=== PATIENT | female | born 1980 | race Caucasian/White ===

== ENCOUNTER 2016-11-06 08:26 | Emergency (ER) | payer BC ==
[2016-11-06 08:40] VITALS: TEMP 97.4
--- NOTE | 2016-11-06 08:55 | ED.PDOC ---
History of Present Illness - General Chief Complaint: Problem Stated Complaint: right flank pain Time Seen by Provider: 11/06/16 08:49 Source: patient Exam Limitations: no limitations - History of Present Illness Initial Comments: Patient is a 36 yo F with CHF and HTN who presents with right flank pain for one day. Pain is sharp and constant. Non-radiating. No exacerbating nor alleviating factors. No previous episodes that have felt like this exactly but she did have a "kidney infection" once. No fever/hematuria/dysuria/frequency. No other complaints. Timing/Duration: 24 hours Severity: moderate Improving Factors: nothing Worsening Factors: nothing Associated Symptoms: denies symptoms Allergies/Adverse Reactions: Allergies NO KNOWN ALLERGY Allergy (Verified 05/05/16 21:33) Home Medications: Ambulatory Orders Albuterol Inhaler [Ventolin Hfa Inhaler] 1 inh INH Q4H PRN #0 inh 02/27/13 Albuterol Sulfate 0.083 % IN Q4H PRN 05/15/14 Carvedilol [Coreg] 6.25 mg PO BID 05/15/14 Clonidine HCl 0.1 mg PO PRN PRN 05/15/14 Lisinopril & Hydrochlorothiazi [Lisinopril/Hctz 20-12.5 mg] 1 tab PO DAILY 05/15 Montelukast Sodium 10 mg PO DAILY 05/15/14 Montelukast Sodium 10 mg PO DAILY #20 tab 05/06/16 amLODIPine BESYLATE [Norvasc] 5 mg PO DAILY #20 tab 05/06/16 Ketorolac Tromethamine [Toradol Tabs] 10 mg PO Q6HR #16 tab 11/06/16 Review of Systems - Review of Systems Constitutional: States: no symptoms reported EENTM: States: no symptoms reported Respiratory: States: no symptoms reported Cardiology: States: no symptoms reported Gastrointestinal/Abdominal: States: see HPI Genitourinary: States: see HPI Musculoskeletal: States: no symptoms reported Skin: States: no symptoms reported Neurological: States: no symptoms reported Endocrine: States: no symptoms reported Hematologic/Lymphatic: States: no symptoms reported Past Medical History (General) - Patient Medical History Hx Seizures: No Hx Stroke: No Hx Asthma: Yes Hx of COPD: No Hx Cardiac Disorders: No Hx Congestive Heart Failure: Yes Hx Pacemaker: No Hx Hypertension: Yes Hx Diabetes: No Hx Cancer: No Hx Hepatitis C: No Hx MRSA: No - Vaccination History Hx Tetanus, Diphtheria Vaccination: No Hx Influenza Vaccination: No Hx Pneumococcal Vaccination: No - Social History Hx Tobacco Use: Yes Hx Chewing Tobacco Use: No Hx Alcohol Use: No Hx Substance Use: No Hx Physical Abuse: No Hx Emotional Abuse: No Hx Suspected Abuse: No - Female History Patient is a Female of Child Bearing Age (10 -59 yrs old): Yes Patient : No Family Medical History - Family History Mother Living Status: Sister Living Status: Still Living Hx Family Stroke: Yes Physical Exam - Physical Exam Ears, Nose, Throat: normal ENT inspection Neck: non-tender, full range of motion, supple Respiratory: other - mild scattered wheezing Cardiovascular/Chest: regular rate, rhythm Gastrointestinal/Abdominal: normal bowel sounds, non tender, soft Back Exam: normal inspection, no CVA tenderness Extremity: normal inspection Skin Exam: normal color Lymphatic: no adenopathy Progress - Progress Progress: 11/06/16 10:19 Urinalysis showed large blood. Other labs wnl. CT ab/pelvis showed 1 mm left uretral stone. Patient received toradol 30 mg IM x one and RX for toradol at home. Laboratory Tests 11/06/16 11/06/16 11/06/16 08:45 09:00 09:00 WBC 8.8 RBC 4.58 Hgb 13.9 Hct 41.8 MCV 91.3 MCH 30.3 MCHC 33.2 RDW 14.9 H Plt Count 267 MPV 8.7 Absolute Neuts (auto) 5.90 Absolute Lymphs (auto) 2.10 Absolute Monos (auto) 0.50 Absolute Eos (auto) 0.30 Absolute Basos (auto) 0.10 Neutrophils % 66.6 Lymphocytes % 23.6 Monocytes % 5.3 Eosinophils % 3.4 Basophils % 1.1 Sodium 139 Potassium 3.8 Chloride 105 Carbon Dioxide 28 Anion Gap 9.8 L BUN 11 Creatinine 0.67 BUN/Creatinine Ratio 16.4 Random Glucose 165 H Serum Osmolality 280.6 Calcium 9.3 Total Bilirubin 0.7 AST 21 ALT 28 Alkaline Phosphatase 101 Serum Total Protein 7.5 Albumin 4.2 Globulin 3.3 Albumin/Globulin Ratio 1.3 Urine Color Yellow Urine Appearance Clear Urine pH 6.5 Ur Specific [place] 1.020 Urine Protein Negative Urine Glucose (UA) Negative Urine Ketones Negative Urine Blood Large H Urine Nitrite Negative Urine Bilirubin Negative Urine Urobilinogen 0.2 Ur Leukocyte Esterase Negative Urine RBC 1-3 Urine WBC 0 Ur Epithelial Cells 3-5 Urine Bacteria 0 Departure - Departure Clinical Impression: Ureteral stone Disposition: Discharge to Home or Self Care Condition: Good Departure Forms: ED Discharge - Pt. Copy, Patient Portal Self Enrollment Diet: resume usual diet, other - increase fluids Activity: increase activity as tolerated Referrals: Gabriele Whiteside MD [Primary Care Provider] - 1-2 Weeks Prescriptions: Ketorolac Tromethamine [Toradol Tabs] 10 mg PO Q6HR #16 tab Home Medications: Ambulatory Orders Albuterol Inhaler [Ventolin Hfa Inhaler] 1 inh INH Q4H PRN #0 inh 02/27/13 Albuterol Sulfate 0.083 % IN Q4H PRN 05/15/14 Carvedilol [Coreg] 6.25 mg PO BID 05/15/14 Clonidine HCl 0.1 mg PO PRN PRN 05/15/14 Lisinopril & Hydrochlorothiazi [Lisinopril/Hctz 20-12.5 mg] 1 tab PO DAILY 05/15 Montelukast Sodium 10 mg PO DAILY 05/15/14 Montelukast Sodium 10 mg PO DAILY #20 tab 05/06/16 amLODIPine BESYLATE [Norvasc] 5 mg PO DAILY #20 tab 05/06/16 Ketorolac Tromethamine [Toradol Tabs] 10 mg PO Q6HR #16 tab 11/06/16 Additional Instructions: Take medication as prescribed. Try to catch the stone with the strainer provided and bring it in a plastic bag to your doctor or to the lab here. Increase your oral fluids. Return to your primary care provider if pain continues for more than 4 days or for painful urination.
--- NOTE | 2016-11-06 10:08 | CT ---
EXAM DESCRIPTION: Abdoment/Pelvis w/o Contrast CLINICAL HISTORY: stone protocol COMPARISON: None. TECHNIQUE: CT of the abdomen and pelvis was performed . Multiple axial images and multiplanar reconstructions were generated. This exam was performed according to our department minimal dose optimization program which includes automated exposure control, adjustment of mA and/or kV according to patient size and/or use of iterative reconstructed techniques. FINDINGS: Lung bases are clear. There is extreme hepatomegaly as the liver measures 25 cm in diameter. The liver is also fatty. Splenomegaly noted. The spleen measures 14 cm in diameter. The gallbladder is present. The pancreas and bilateral adrenal glands are unremarkable. No evidence of renal obstruction. No definitive proximal or mid ureteral stone. There is a tiny 1 mm density noted within the region of the left distal ureter which could be compatible with a small ureteral stone. No definitive urinary bladder stone. Uterus is unremarkable. Right ovarian follicle noted measuring 2 cm in diameter. No lymphadenopathy. Small bowel and colon are grossly unremarkable. IMPRESSION: 1. Today's exam is limited due to quantum mottle. There is a 1 mm density noted within the region of the left distal ureter which could be a phlebolith or a left distal ureteral stone. If this is a ureteral stone is not resulting in any obstruction of the left ureter or kidney. 2. A very large liver is noted which measures 25 cm in diameter. The liver is also low in density compatible with fatty infiltration. There is also splenomegaly noted. Electronically signed by: Jese Suazo MD 11/06/2016 10:07 AM CDT
[2016-11-06] MEDS ORDERED: KETOROLAC TROMETHAMINE INJ 30 MG/ML VIAL IM ONE (10:19)
[2016-11-06 11:00] VITALS: BP 152/94; O2SAT 95
== END 2016-11-06 11:00 | disposition home or self-care (01) ==
LOC: ER 08:26
DX: N20.1 Calculus of ureter (principal); I11.0 Hypertensive heart disease with heart failure; I50.9 Heart failure, unspecified; J45.909 Unspecified asthma, uncomplicated; Z87.891 Personal history of nicotine dependence; Z79.899 Other long term (current) drug therapy

== ENCOUNTER 2020-02-12 09:28 | Emergency (ER) | payer SELFPAY ==
[2020-02-12 09:42] VITALS: TEMP 96.5
[2020-02-12] MEDS ORDERED: TAMSULOSIN 0.4 MG CAP PO ONE (09:50)
[2020-02-12] MEDS ORDERED: MORPHINE SULFATE INJ 10 MG/ML VIAL IV ONE (09:50)
[2020-02-12] MEDS ORDERED: cloNIDine HCL 0.1 MG TAB PO ONE (10:47)
[2020-02-12 11:07] VITALS: O2SAT 97
--- NOTE | 2020-02-12 11:17 | CT ---
Study: CT abdomen and pelvis. Indication: rt flank pain Technique: CT of the abdomen and pelvis obtained without intravenous contrast. This exam was performed according to our departmental dose-optimization program, which includes automated exposure control, adjustment of the mA and/or kV according to patient size and/or use of iterative reconstruction technique. Comparison: November 06, 2016. Findings: Patchy groundglass attenuation in the lingula. Mild cardiomegaly. Hepatomegaly and hepatic steatosis. Gallbladder, pancreas, spleen, adrenal glands, kidneys, bladder, uterus, bilateral adnexa demonstrate a normal unenhanced CT appearance. Abnormal multilobulated soft tissue density noted in the presacral space but difficult to evaluate due to body habitus. This may reflect vascularity but is indeterminate. Mild colonic diverticulosis. Appendix not visualized. No free fluid. No free air. No pathologically enlarged lymphadenopathy. Atherosclerosis aorta. Degenerative changes of the spine noted. Impression: Technically limited examination due to body habitus. Hazy groundglass partially visualized in the lingula. This could reflect atelectasis or pneumonia. COVID-19 could give this appearance. Hepatic steatosis and hepatomegaly. Indeterminate multilobulated soft tissue density focus in the presacral space, indeterminate. Further characterization with MRI female pelvis with and without IV contrast recommended. No hydronephrosis or nephrolithiasis. Additional findings as above. Electronically signed by: Dillan Harkins MD 02/12/2020 11:16 AM CDT
[2020-02-12 12:05] VITALS: BP 168/102
--- NOTE | 2020-02-12 12:17 | ED.PDOC ---
History of Present Illness - General Chief Complaint: Problem Stated Complaint: right flank pain, urinary urgency Time Seen by Provider: 02/12/20 09:33 Source: patient Exam Limitations: no limitations - History of Present Illness Initial Comments: The patient is a 39-year-old female presented emergency room secondary to right flank pain since yesterday. It has come along with the need to urinate more frequently though she has not been able to really urinate much. The patient is also had stomach upset for the last week since she started her metformin. She has had some intermittent diarrhea and increased reflux issues. No chest pain. She has had a little worsening of her asthma over the last week as well. No weight loss. No fever. No chest pain. No shortness of breath otherwise. Timing/Duration: unsure Severity: mild Improving Factors: nothing Worsening Factors: nothing Associated Symptoms: malaise, nausea/vomiting Allergies/Adverse Reactions: Allergies NO KNOWN ALLERGY Allergy (Verified 05/05/16 21:33) Home Medications: Ambulatory Orders Albuterol Inhaler [Ventolin Hfa Inhaler] 1 inh INH Q4H PRN #0 inh 02/27/13 Albuterol Sulfate 0.083 % IN Q4H PRN 05/15/14 Carvedilol [Coreg] 6.25 mg PO BID 05/15/14 Clonidine HCl 0.1 mg PO PRN PRN 05/15/14 Lisinopril & Hydrochlorothiazi [Lisinopril/Hctz 20-12.5 mg] 1 tab PO DAILY 05/15/14 Montelukast Sodium 10 mg PO DAILY 05/15/14 Montelukast Sodium 10 mg PO DAILY #20 tab 05/06/16 amLODIPine BESYLATE [Norvasc] 5 mg PO DAILY #20 tab 05/06/16 Ketorolac Tromethamine [Toradol Tabs] 10 mg PO Q6HR #16 tab 11/06/16 Famotidine 20 mg PO DAILY #30 tab 02/12/20 levoFLOXacin [Levaquin] 500 mg PO DAILY #5 tab 02/12/20 Review of Systems - Review of Systems Constitutional: States: no symptoms reported EENTM: States: no symptoms reported Respiratory: States: see HPI, other Cardiology: States: no symptoms reported Gastrointestinal/Abdominal: States: see HPI, diarrhea Genitourinary: States: frequency Musculoskeletal: States: back pain Skin: States: no symptoms reported Neurological: States: no symptoms reported Endocrine: States: no symptoms reported All other Systems: No Change from Baseline Past Medical History (General) - Patient Medical History Hx Seizures: No Hx Stroke: No Hx Asthma: Yes Hx of COPD: No Hx Cardiac Disorders: No Hx Congestive Heart Failure: No Hx Pacemaker: No Hx Hypertension: Yes Hx Diabetes: No Hx Renal Disease: - kidney stones Hx Cancer: No Hx Hepatitis C: No Hx MRSA: No Surgical History: other - Vaccination History Hx Tetanus, Diphtheria Vaccination: No Hx Influenza Vaccination: No Hx Pneumococcal Vaccination: No - Social History Hx Tobacco Use: Yes Hx Chewing Tobacco Use: No Hx Alcohol Use: No Hx Substance Use: No Hx Physical Abuse: No Hx Emotional Abuse: No Hx Suspected Abuse: No - Female History Patient : No Family Medical History - Family History Mother Living Status: Sister Living Status: Still Living Hx Family Stroke: Yes Physical Exam - Physical Exam General Appearance: Alert, No apparent distress Eye Exam: bilateral normal Ears, Nose, Throat: hearing grossly normal, normal pharynx Neck: full range of motion, supple Respiratory: no respiratory distress, no accessory muscle use, wheezing - Mild scattered Cardiovascular/Chest: normal peripheral pulses, no edema, other - Regular rate Peripheral Pulses: radial,right: 2+, radial,left: 2+ Gastrointestinal/Abdominal: non tender, soft, other - Morbidly obese Rectal Exam: deferred Back Exam: normal inspection, no CVA tenderness, no vertebral tenderness Extremity: normal range of motion, non-tender, no pedal edema, normal capillary refill Neurologic: doorshaker II-XII nml as tested, alert, normal mood/affect, oriented x 3 Skin Exam: normal color Comments: Vital Signs - 24 hr 02/12/20 02/12/20 02/12/20 09:32 10:32 11:07 Temperature 96.5 F L Pulse Rate [ 77 66 left radial] Respiratory 22 20 20 Rate Blood Pressure 198/129 193/118 170/105 [left radial] O2 Sat by Pulse 94 L 94 L 97 Oximetry 02/12/20 12:00 Temperature Pulse Rate [ 68 left radial] Respiratory 20 Rate Blood Pressure 168/102 [left radial] O2 Sat by Pulse 97 Oximetry Progress - Progress Progress: 02/12/20 12:18 The patient is a 39-year-old female presented to emergency room secondary to several issues. The first is that she has been having some intestinal upset. This is most likely related to the metformin. She cannot form in with her meals if she wishes to reduce some of the irritation she can also reduce it to 250 mg twice a day. She will also be written for some Pepcid to take for the next couple of weeks while she is getting used to it. Blood sugar appears to be well controlled today. Additionally the patient presented with symptoms that are most consistent with the passage of a small right-sided kidney stone. There is no obstruction noted on the CT scan and no large stone. She can take a little bit of Motrin as needed. Blood pressure was up initially due to discomfort and is still moderately elevated. She does have chronic hypertension as she does need to keep follow-up with her primary care doctor for management of this. She is asymptomatic from it at this time. Additionally the patient does have a small infiltrate in the lingula of the lung. Given her asthma history the patient is going to be placed on Levaquin for 5 days in order to prevent any significant pneumonia from setting and. She does need to continue her breathing treatments. She needs to keep her self well-hydrated. Additionally the patient does have what is described as a multilobulated presacral soft tissue density that has likely been present for several years. An outpatient MRI with her primary care doctor is recommended. This is not likely contributing to her symptoms today. ER warnings are given. alexandra hayward [id number] - Results/Orders Results/Orders: CT scan of the abdomen pelvis without contrast shows a small lingular infiltrate versus atelectasis. She has a fatty liver. There is a small multilobulated soft tissue density anterior to the sacrum. On my comparison of this to her CT scan of the same area from 2017, this area appears largely unchanged as far as I can tell. It appears to be fairly solid. No surrounding inflammatory changes. It is not felt to be an abscess or infectious process. I do believe that I can see it even as far back as her CT scan from 2010. Laboratory Results - last 24 hr 02/12/20 02/12/20 02/12/20 09:55 09:55 09:55 WBC 8.6 RBC 4.53 Hgb 13.9 Hct 40.5 MCV 89.3 MCH 30.8 MCHC 34.4 RDW 15.5 H Plt Count 327 MPV 9.4 Absolute Neuts (auto) 5.60 Absolute Lymphs (auto) 2.10 Absolute Monos (auto) 0.60 Absolute Eos (auto) 0.30 Absolute Basos (auto) 0.10 Neutrophils % 64.6 Lymphocytes % 24.2 Monocytes % 6.6 Eosinophils % 3.3 Basophils % 1.3 Sodium 137 Potassium 3.9 Chloride 101 Carbon Dioxide 27 Anion Gap 12.9 BUN 9 Creatinine 0.72 BUN/Creatinine Ratio 12.5 Random Glucose 115 H Serum Osmolality 273.4 L Calcium 9.1 Magnesium 1.8 Total Bilirubin 1.1 H AST 23 ALT 35 Alkaline Phosphatase 76 Creatine Kinase 58 CK-MB (CK-2) 1.4 CK-MB (CK-2) % Not Reportable Troponin I < 0.02 Serum Total Protein 7.2 Albumin 4.1 Globulin 3.1 Albumin/Globulin Ratio 1.3 Amylase 23 L Lipase 24 Serum HCG, Qual Urine Color Urine Appearance Urine pH Ur Specific [place] Urine Protein Urine Glucose (UA) Urine Ketones Urine Blood Urine Nitrite Urine Bilirubin Urine Urobilinogen Ur Leukocyte Esterase Urine RBC Urine WBC Ur Epithelial Cells Urine Bacteria 02/12/20 02/12/20 09:55 10:00 WBC RBC Hgb Hct MCV MCH MCHC RDW Plt Count MPV Absolute Neuts (auto) Absolute Lymphs (auto) Absolute Monos (auto) Absolute Eos (auto) Absolute Basos (auto) Neutrophils % Lymphocytes % Monocytes % Eosinophils % Basophils % Sodium Potassium Chloride Carbon Dioxide Anion Gap BUN Creatinine BUN/Creatinine Ratio Random Glucose Serum Osmolality Calcium Magnesium Total Bilirubin AST ALT Alkaline Phosphatase Creatine Kinase CK-MB (CK-2) CK-MB (CK-2) % Troponin I Serum Total Protein Albumin Globulin Albumin/Globulin Ratio Amylase Lipase Serum HCG, Qual Negative Urine Color Yellow Urine Appearance Clear Urine pH 6.5 Ur Specific [place] 1.015 Urine Protein Negative Urine Glucose (UA) Negative Urine Ketones Negative Urine Blood Negative Urine Nitrite Negative Urine Bilirubin Negative Urine Urobilinogen 0.2 Ur Leukocyte Esterase Negative Urine RBC 0 Urine WBC 0 Ur Epithelial Cells 1-3 Urine Bacteria 0 Departure - Departure Clinical Impression: Flank pain, Lingular pneumonia Medication adverse effect Qualifiers: Encounter type: initial encounter Qualified Code(s): T50.905A - Adverse effect of unspecified drugs, medicaments and biological substances, initial encounter Disposition: Discharge to Home or Self Care Condition: Fair Departure Forms: ED Discharge - Pt. Copy, Patient Portal Self Enrollment Diet: bland diet, diabetic diet Activity: increase activity as tolerated Referrals: MERRY DELACRUZ IV, LO[employer] OPERATOR [Primary Care Provider] - 1-2 Weeks Prescriptions: Famotidine 20 mg PO DAILY #30 tab levoFLOXacin [Levaquin] 500 mg PO DAILY #5 tab Home Medications: Ambulatory Orders Albuterol Inhaler [Ventolin Hfa Inhaler] 1 inh INH Q4H PRN #0 inh 02/27/13 Albuterol Sulfate 0.083 % IN Q4H PRN 05/15/14 Carvedilol [Coreg] 6.25 mg PO BID 05/15/14 Clonidine HCl 0.1 mg PO PRN PRN 05/15/14 Lisinopril & Hydrochlorothiazi [Lisinopril/Hctz 20-12.5 mg] 1 tab PO DAILY 05/15/14 Montelukast Sodium 10 mg PO DAILY 05/15/14 Montelukast Sodium 10 mg PO DAILY #20 tab 05/06/16 amLODIPine BESYLATE [Norvasc] 5 mg PO DAILY #20 tab 05/06/16 Ketorolac Tromethamine [Toradol Tabs] 10 mg PO Q6HR #16 tab 11/06/16 Famotidine 20 mg PO DAILY #30 tab 02/12/20 levoFLOXacin [Levaquin] 500 mg PO DAILY #5 tab 02/12/20 Additional Instructions: The patient is a 39-year-old female presented to emergency room secondary to several issues. The first is that she has been having some intestinal upset. This is most likely related to the metformin. She cannot form in with her meals if she wishes to reduce some of the irritation she can also reduce it to 250 mg twice a day. She will also be written for some Pepcid to take for the next couple of weeks while she is getting used to it. Blood sugar appears to be well controlled today. Additionally the patient presented with symptoms that are most consistent with the passage of a small right-sided kidney stone. There is no obstruction noted on the CT scan and no large stone. She can take a little bit of Motrin as needed. Blood pressure was up initially due to discomfort and is still moderately elevated. She does have chronic hypertension as she does need to keep follow-up with her primary care doctor for management of this. She is asymptomatic from it at this time. Additionally the patient does have a small infiltrate in the lingula of the lung. Given her asthma history the patient is going to be placed on Levaquin for 5 days in order to prevent any significant pneumonia from setting and. She does need to continue her breathing treatments. She needs to keep her self well-hydrated. Additionally the patient does have what is described as a multilobulated presacral soft tissue density that has likely been present for several years. An outpatient MRI with her primary care doctor is recommended. This is not likely contributing to her symptoms today. ER warnings are given.
== END 2020-02-12 12:30 | disposition home or self-care (01) ==
LOC: ER 09:28
DX: J18.1 Lobar pneumonia, unspecified organism (principal); R10.9 Unspecified abdominal pain; T50.905A Adverse effect of unspecified drugs, medicaments and biological substances, initial encounter; R19.7 Diarrhea, unspecified; R35.0 Frequency of micturition; K21.9 Gastro-esophageal reflux disease without esophagitis; K76.0 Fatty (change of) liver, not elsewhere classified; J45.909 Unspecified asthma, uncomplicated; I10 Essential (primary) hypertension; Z79.84 Long term (current) use of oral hypoglycemic drugs; Z79.899 Other long term (current) drug therapy; Z87.442 Personal history of urinary calculi; Z87.891 Personal history of nicotine dependence
CPT/HCPCS: 36415; 74176; 80053; 81001; 82150; 82550; 82553; 83690; 83735; 84484; 84703; 85025; J2270